=== PATIENT | female | born 1940 | race Caucasian/White ===

== ENCOUNTER 2016-08-28 16:50 | Outpatient (CLI) | payer BC, MEDICARE ==
[2016-08-28 17:20] LABS: #Basophils 0.1 thou/uL (0.0-0.2); #Eosinphils 0.1 thou/uL (0.0-0.7); #Lymphocytes 1.5 thou/uL (1.20-3.40); #Monocytes 0.6 thou/uL (0.11-0.59); #Neutrophils 4.9 thou/uL (1.40-6.50); %Basophils 0.8 % (0.0-1.0); %Eosinophils 1.9 % (0.0-10.0); %Lymphocytes 21.2 % (21.0-51.0); %Monocytes 8.5 % (0.0-10.0); %Neutrophils 67.6 % (42.0-75.0); Hemoglobin 13.4 g/dL (12.0-16.0); Mean Corpuscular HGB CONC 34.2 g/dL (32.0-36.0); Mean Corpuscular Hemoglobin 30.6 pg (27.0-31.0); Mean Corpuscular Volume 89.6 fl (81.0-99.0); Mean Platelet Volume 7.8 fL (7.4-10.4); Platelet Count 256 thou/uL (130-400); RBC Distribution Width 12.3 % (11.5-14.5); Red Blood Cell (RBC) Count 4.37 mill/uL (4.20-5.40); White Blood Cell (WBC) Count 7.2 thou/uL (4.8-10.8)
[2016-08-28 17:32] LABS: Hemoglobin A1c 5.1 % (4.0-6.0)
[2016-08-28 17:37] LABS: ALT (SGPT) 11 U/L (8-55); AST (SGOT) 18 U/L (5-34); Alkaline Phosphatase 117 U/L (40-150); Anion Gap 15 mmol/L (10-20); BUN (Urea Nitrogen) 19 mg/dL (9.8-20.1); Bilirubin, Total Less than 0.3 mg/dL (0.2-1.2); Calc. Creatinine Clearance 0 mL/min (70-130); Calcium 9.4 mg/dL (7.8-10.44); Carbon Dioxide 25 mmol/L (23-31); Cardiac Risk 4.2 (Less than 4.5); Chloride 104 mmol/L (98-107); Cholesterol 154 mg/dL (< 200 Desired); Estimated GFR-MDRD 56; Globulin 3.3 g/dL (2.4-3.5); Glucose 97 mg/dL (83-110); HDL Cholesterol 37 mg/dL (>60 Neg Risk); LDL Cholesterol, Calculated 45 mg/dL; Potassium 3.5 mmol/L (3.5-5.1); Protein, Total 7.3 g/dL (5.8-8.1); Sodium 140 mmol/L (136-145); Triglycerides 359 mg/dL (Less than 150)
== END 2016-08-28 16:51 | disposition home or self-care (01) ==
LOC: MADLABBHPM 16:50
PROVIDERS: ATTEND Family Medicine
DX: I10 Essential (primary) hypertension (principal); F41.1 Generalized anxiety disorder; E87.6 Hypokalemia; R53.83 Other fatigue
CPT/HCPCS: 36415; 80053; 80061; 83036; 84443; 85025

== ENCOUNTER 2017-10-16 13:00 | Outpatient (CLI) | payer MEDICARE ==
[2017-10-16 13:53] LABS: ALT (SGPT) 9 U/L (8-55); AST (SGOT) 12 U/L (5-34); Albumin 3.7 g/dL (3.4-4.8); Alkaline Phosphatase 120 U/L (40-150); Anion Gap 12 mmol/L (10-20); BUN (Urea Nitrogen) 21 mg/dL (9.8-20.1); Bilirubin, Total 0.3 mg/dL (0.2-1.2); Calc. Creatinine Clearance 0 mL/min (70-130); Carbon Dioxide 24 mmol/L (23-31); Chloride 109 mmol/L (98-107); Estimated GFR-MDRD 65; Globulin 3.5 g/dL (2.4-3.5); Glucose 104 mg/dL (83-110); Potassium 3.2 mmol/L (3.5-5.1); Protein, Total 7.2 g/dL (6.0-8.3); Sodium 142 mmol/L (136-145)
[2017-10-16 13:54] LABS: White Blood Cell (WBC) Count 4.7 thou/uL (4.8-10.8)
[2017-10-16 13:55] LABS: Hemoglobin 11.6 g/dL (12.0-16.0); Manual Diff?? NO; Mean Corpuscular HGB CONC 32.8 g/dL (32.0-36.0); Mean Corpuscular Hemoglobin 27.9 pg (27.0-31.0); Mean Corpuscular Volume 85.1 fL (78.0-98.0); Mean Platelet Volume 7.2 fL (7.4-10.4); Platelet Count 259 thou/uL (130-400); Red Blood Cell (RBC) Count 4.18 mill/uL (4.20-5.40)
[2017-10-16 13:56] LABS: #Basophils 0.1 thou/uL (0.0-0.2); #Eosinphils 0.1 thou/uL (0.0-0.7); #Monocytes 0.4 thou/uL (0.11-0.59); #Neutrophils 2.8 thou/uL (1.40-6.50); %Basophils 1.4 % (0.0-1.0); %Eosinophils 2.4 % (0.0-10.0); %Lymphocytes 29.6 % (21.0-51.0); %Monocytes 8.6 % (0.0-10.0)
[2017-10-16 13:57] LABS: MDiff Complete? YES
== END 2017-10-16 13:01 | disposition home or self-care (01) ==
LOC: MADLABBHPM 13:00
PROVIDERS: ATTEND Family Medicine
DX: R42 Dizziness and giddiness (principal); R55 Syncope and collapse; F41.1 Generalized anxiety disorder; I10 Essential (primary) hypertension; R82.90 Unspecified abnormal findings in urine
CPT/HCPCS: 36415; 80053; 84443; 85025; 87086; 93005; 93010

== ENCOUNTER 2018-07-01 10:25 | Outpatient (CLI) | payer MEDICARE ==
--- NOTE | 2018-07-01 12:38 | RAD ---
CHEST TWO VIEWS: History: Cough and dyspnea. Comparison: 01-10-10 FINDINGS: Heart size is normal. Old granulomatous disease. No confluent pneumonia, overt edema, or pleural effu ralph. IMPRESSION: No acute intrathoracic disease. Old granulomatous disease. Atherosclerosis of the aorta with ectasia. Stable from prior study. POS: [facility]
== END 2018-07-01 10:26 | disposition home or self-care (01) ==
LOC: MADRAD 10:25
PROVIDERS: ATTEND Nurse Practitioner Family
DX: R06.00 Dyspnea, unspecified (principal); R05 Cough; I70.0 Atherosclerosis of aorta; I77.819 Aortic ectasia, unspecified site
CPT/HCPCS: 71046

== ENCOUNTER 2018-08-11 11:35 | Emergency (ER) | payer MEDICARE ==
[2018-08-11 11:56] LABS: #Basophils 0.1 thou/uL (0.0-0.2); #Eosinphils 0.2 thou/uL (0.0-0.7); #Lymphocytes 1.4 thou/uL (1.20-3.40); #Monocytes 0.5 thou/uL (0.11-0.59); #Neutrophils 3.4 thou/uL (1.40-6.50); %Basophils 1.7 % (0.0-1.0); %Eosinophils 3.8 % (0.0-10.0); %Lymphocytes 25.3 % (21.0-51.0); %Monocytes 8.5 % (0.0-10.0); %Neutrophils 60.7 % (42.0-75.0); Hemoglobin 12.9 g/dL (12.0-16.0); Mean Corpuscular Hemoglobin 28.5 pg (27.0-31.0); Mean Corpuscular Volume 86.3 fL (78.0-98.0); Mean Platelet Volume 7.1 fL (7.4-10.4); Platelet Count 268 thou/uL (130-400); Red Blood Cell (RBC) Count 4.53 mill/uL (4.20-5.40); White Blood Cell (WBC) Count 5.6 thou/uL (4.8-10.8)
--- NOTE | 2018-08-11 12:09 | RAD ---
EXAM: CHEST ONE VIEW HISTORY: Cough and dyspnea COMPARISON: 07/01/2018 FINDINGS: Cardiac silhouette is magnified by projection but stable in size pulmonary vasculature is within norm al limits. The lungs are clear. Degenerative changes are seen in the spine, and there is bilateral acromioclavicular joint osteoarthritis. Thoracic aorta at the level of the aortic arch is tortuous an d ectatic. However, this is a stable finding when compared to the prior exam and also unchanged compared to prior study on 01/10/2010. IMPRESSION: No acute cardiopulmonary process.
[2018-08-11 12:10] LABS: ALT (SGPT) 11 U/L (8-55); AST (SGOT) 14 U/L (5-34); Alkaline Phosphatase 123 U/L (40-150); Anion Gap 14 mmol/L (10-20); BUN (Urea Nitrogen) 20 mg/dL (9.8-20.1); Bilirubin, Total 0.4 mg/dL (0.2-1.2); Calc. Creatinine Clearance 0 mL/min (70-130); Calcium 9.2 mg/dL (7.8-10.44); Carbon Dioxide 26 mmol/L (23-31); Chloride 107 mmol/L (98-107); Estimated GFR-MDRD 58; Globulin 3.6 g/dL (2.4-3.5); Glucose 79 mg/dL (83-110); Potassium 3.6 mmol/L (3.5-5.1); Protein, Total 7.6 g/dL (6.0-8.3); Sodium 143 mmol/L (136-145)
[2018-08-11] MEDS ORDERED: Aspirin Chewable 81 MG TAB ONE (12:17)
[2018-08-11] MEDS ORDERED: Nitroglycerin 2% Ointment 1 INCH/1 GM Packet ONE (12:17)
== END 2018-08-11 15:50 | disposition left against medical advice (07) ==
LOC: MADERS 11:35
DX: I20.0 Unstable angina (principal); I10 Essential (primary) hypertension; Z79.899 Other long term (current) drug therapy; E87.6 Hypokalemia
CPT/HCPCS: 36415; 71045; 80053; 83880; 84484; 85025; 93005; 99292

== ENCOUNTER 2019-12-21 08:30 | Outpatient (CLI) | payer MEDICARE ==
--- NOTE | 2019-12-21 09:22 | ULT ---
ULTRASOUND RETROPERITONEUM COMPLETE: (RENAL) DATE: 12/21/2019 HISTORY: Stage III Chronic kidney disease in 79-year-old female FINDINGS: The right kidney measures 8.5 x 5.5 x 4.5 cm. The left kidney measures 3.5 x 5.5 x 4.5 cm. Both kidneys have decreased parenchymal thickness. There is no hydronephrosis. There is a 2 cm cyst in the right renal mid-lower pole with a septation. There is a 2.5 x 3 cm cyst at the left renal midpole.. Prevoid bladder volume 80 mL Post void bladder volume. 25 mL IMPRESSION: 1. No hydronephrosis. 2. Renal parenchymal thinning, typical for this age group. 3. Bilateral renal cysts, at least one in each kidney. 4. Incomplete micturition.
[2019-12-21 09:34] LABS: Anion Gap 13 mmol/L (10-20); BUN (Urea Nitrogen) 23 mg/dL (9.8-20.1); Calc. Creatinine Clearance 0 mL/min (70-130); Calcium 8.9 mg/dL (7.8-10.44); Carbon Dioxide 25 mmol/L (23-31); Chloride 106 mmol/L (98-107); Estimated GFR-MDRD 56; Glucose 93 mg/dL (83-110); Phosphorus 3.1 mg/dL (2.3-4.7); Potassium 3.3 mmol/L (3.5-5.1); Sodium 141 mmol/L (136-145)
[2019-12-21 10:20] LABS: Band 4 % (5-11); Eosinophils 3 % (0-10); Hemoglobin 12.1 g/dL (12.0-16.0); Lymphocytes 23 % (21-51); MDiff Complete? YES; Mean Corpuscular HGB CONC 32.1 g/dL (32.0-36.0); Mean Corpuscular Hemoglobin 28.7 pg (27.0-31.0); Mean Corpuscular Volume 89.5 fL (78.0-98.0); Metamyelocyte 1 % (0-0); Monocytes 6 % (0-10); Neutrophil 63 % (42-75); Platelet Count 255 thou/uL (130-400); RBC Distribution Width 12.2 % (11.5-14.5); White Blood Cell (WBC) Count 5.4 thou/uL (4.8-10.8)
[2019-12-21 10:56] LABS: Bilirubin Negative (Negative); Blood, Urine Moderate (Negative); Clarity Clear (Clear); Glucose, Urine (Dipstick) Negative (Negative); Ketone, Urine Negative (Negative); Leukocyte Small (Negative); Nitrite Negative (Negative); Protein, Urine (Dipstick) Negative (Neg-Trace); Urobilinogen 0.2 mg/dL (Less than 2)
[2019-12-21 17:35] LABS: Creatinine, Urine 25.98 mg/dL (47-110); Protein, Urine Random Quant Less than 10 mg/dL (1-14)
[2019-12-22 13:21] LABS: ANA Symphony (Qualitative) Negative (Negative); ANA Symphony (Quantitative) 0.2 Ratio (< 0.7 Negative); dsDNA IgG Antibody 1.3 IU/mL (<10 Negative)
== END 2019-12-21 08:31 | disposition home or self-care (01) ==
LOC: MADRAD 08:30
PROVIDERS: ATTEND Internal Medicine Nephrology
DX: I12.9 Hypertensive chronic kidney disease with stage 1 through stage 4 chronic kidney disease, or unspecified chronic kidney disease (principal); N18.3 Chronic kidney disease, stage 3 (moderate)
CPT/HCPCS: 36415; 76770; 80048; 81003; 82085; 82533; 82570; 83970; 84100; 84156; 84244; 85025; 86038; 86225

== ENCOUNTER 2021-08-28 21:40 | Outpatient (CLI) | payer MEDICARE ==
[2021-08-28 22:12] LABS: ALT (SGPT) 7 U/L (8-55); AST (SGOT) 14 U/L (5-34); Albumin 3.9 g/dL (3.4-4.8); Alkaline Phosphatase 98 U/L (40-110); Anion Gap 18 mmol/L (10-20); BUN (Urea Nitrogen) 38 mg/dL (9.8-20.1); Bilirubin, Total 0.4 mg/dL (0.2-1.2); Calc. Creatinine Clearance 0 mL/min (70-130); Calcium 9.6 mg/dL (7.8-10.44); Carbon Dioxide 26 mmol/L (23-31); Chloride 104 mmol/L (98-107); Globulin 3.1 g/dL (2.4-3.5); Glucose 81 mg/dL (83-110); Potassium 4.5 mmol/L (3.5-5.1); Sodium 143 mmol/L (136-145)
[2021-08-28 22:16] LABS: Amphetamine Not Detected (NotDetected); Barbiturates Screen Not Detected (NotDetected); Benzodiazepine Screen Not Detected (NotDetected); Cocaine Metabolite Screen Not Detected (NotDetected); Medtox Control Line Valid? VALID (VALID); Methadone Not Detected (NotDetected); Methamphetamine Not Detected (NotDetected); Opiate Screen Not Detected (NotDetected); Oxycodone Screen Not Detected (NotDetected); Phencyclidine (PCP) Not Detected (NotDetected); THC/Cannabinoid Screen Not Detected (NotDetected); Tricyclic Screen Not Detected (NotDetected)
[2021-08-28 22:17] LABS: #Basophils 0.1 thou/uL (0.0-0.2); #Eosinphils 0.3 thou/uL (0.0-0.7); #Lymphocytes 1.4 thou/uL (1.20-3.40); #Monocytes 0.7 thou/uL (0.11-0.59); #Neutrophils 4.9 thou/uL (1.40-6.50); %Basophils 1.7 % (0.0-1.0); %Lymphocytes 19.1 % (21.0-51.0); %Monocytes 9.7 % (0.0-10.0); %Neutrophils 65.5 % (42.0-75.0); Hemoglobin 12.4 g/dL (12.0-16.0); Mean Corpuscular HGB CONC 31.5 g/dL (32.0-36.0); Mean Corpuscular Hemoglobin 27.7 pg (27.0-31.0); Mean Corpuscular Volume 87.9 fL (78.0-98.0); Mean Platelet Volume 8.4 fL (7.4-10.4); Platelet Count 245 thou/uL (130-400); RBC Distribution Width 12.9 % (11.5-14.5); Red Blood Cell (RBC) Count 4.47 mill/uL (4.20-5.40); White Blood Cell (WBC) Count 7.5 thou/uL (4.8-10.8)
== END 2021-08-28 21:41 | disposition home or self-care (01) ==
LOC: MADLAB 21:40
PROVIDERS: ATTEND Family Medicine
DX: R53.83 Other fatigue (principal)
CPT/HCPCS: 80053; 80306; 84443; 85025